=== PATIENT | female | born 1925 | race Hispanic/Latino ===

== ENCOUNTER 2017-11-06 01:29 | Emergency (ER) | payer MEDICARE ==
[2017-11-06 01:29] VITALS: PULSE 112; BMI 21.2
[2017-11-06 01:45] VITALS: BP 122/87; PULSE 103; RESP 18; TEMP 97.5; O2SAT 96
--- NOTE | 2017-11-06 02:00 | ED PDOC ---
Arrival/HPI - General Chief Complaint: ENT Problem Time Seen by Provider: 11/06/17 01:48 Historian: Patient - History of Present Illness Narrative History of Present Illness (Text): 11/06/17 01:57 89 year old female, with past medical history of A-Fib, COPD, PE and DVT, presents to the Emergency department complaining of right ear obstruction by foreign object prior to arrival. Patient believes a q-tip may have obstructed her right ear and wants medical attention. Patient currently denies any pain or discomfort to the ear. Patient denies any fever, chills, nausea, vomiting, diarrhea, chest pain, shortness of breath, abdominal pain or any other complaints. Time/Duration: Prior to Arrival Symptom Onset: Gradual Activities at Onset: Light Context: Home Past Medical History - Provider Review Nursing Documentation Reviewed: Yes - Infectious Disease Hx of Infectious Diseases: None - Tetanus Immunization Tetanus Immunization: Unknown - Reproductive Menopause: Yes - Cardiac Hx Cardiac Disorders: Yes Hx Atrial Fibrillation: Yes Hx Congestive Heart Failure: Yes Hx Hypertension: Yes - Pulmonary Hx Chronic Obstructive Pulmonary Disease (COPD): Yes - Neurological Hx Neurological Disorder: No - HEENT Hx HEENT Disorder: No (WEARS RX GLASSES) - Renal Hx Renal Disorder: No - Endocrine/Metabolic Hx Endocrine Disorders: Yes Hx Hyperthyroidism: Yes - Hematological/Oncological Hx Blood Transfusions: Yes Hx Blood Transfusion Reaction: No - Integumentary Hx Dermatological Disorder: No Other/Comment: CYST REMOVED TO BACK - Musculoskeletal/Rheumatological Hx Musculoskeletal Disorders: Yes Hx Back Pain: Yes Hx Falls: Yes Hx Spinal Stenosis: Yes - Gastrointestinal Hx Gastrointestinal Disorders: Yes Hx Gastroesophageal Reflux: Yes - Genitourinary/Gynecological Hx Genitourinary Disorders: No - Psychiatric Hx Psychophysiologic Disorder: Yes Hx Anxiety: Yes Hx Depression: No Hx Emotional Abuse: No Hx Physical Abuse: No Hx Substance Use: No - Past Surgical History Past Surgical History: No Previous - Surgical History Other/Comment: cyst removed from back - Anesthesia Hx Anesthesia Reactions: No Hx Malignant Hyperthermia: No - Suicidal Assessment Feels Threatened In Home Enviroment: No Family/Social History - Physician Review Nursing Documentation Reviewed: Yes Family/Social History: No Known Family HX Smoking Status: Former Smoker Hx Alcohol Use: No Hx Substance Use: No Hx Substance Use Treatment: No Allergies/Home Meds Allergies/Adverse Reactions: Allergies codeine Allergy (Verified 11/06/17 01:45) ANAPHYLAXIS Home Medications: Home Meds Medication Instructions Recorded Confirmed Diazepam 5 mg PO HS PRN 03/23/14 11/06/17 Arformoterol [Brovana] 15 mcg IH DAILY 12/23/14 11/06/17 Budesonide 0.5 mg IH DAILY 12/23/14 11/06/17 Digoxin [Digitek] 125 mcg PO DAILY 08/30/15 11/06/17 Metoprolol Succinate [Toprol XL] 25 mg PO DAILY 08/30/15 11/06/17 Vitamin D 2,000 iu PO DAILY 08/30/15 11/06/17 Apixaban [Eliquis] 5 mg PO DAILY 11/06/17 11/06/17 Latanoprost 0.005% Opht [Xalatan 1 drop OD DAILY 11/06/17 11/06/17 Opht] Methimazole 5 mg PO BID 11/06/17 11/06/17 Olopatadine 0.1% Opht [Patanol 5 1 drop OP DAILY 11/06/17 11/06/17 Ml] Review of Systems - Physician Review All systems were reviewed & negative as marked: Yes - Review of Systems Constitutional: Normal. absent: Fevers Eyes: Normal ENT: Other (foreign body obstruction ) Respiratory: Normal. absent: SOB Cardiovascular: Normal. absent: Chest Pain Gastrointestinal: Normal. absent: Abdominal Pain, Diarrhea, Nausea, Vomiting Genitourinary Female: Normal Musculoskeletal: Normal Skin: Normal Neurological: Normal Endocrine: Normal Hemo/Lymphatic: Normal Psychiatric: Normal Physical Exam Vital Signs Reviewed: Yes Vital Signs Temp Pulse Resp BP Pulse Ox 11/06/17 01:37 97.5 F L 103 H 18 122/87 96 Temperature: Afebrile Blood Pressure: Normal Pulse: Tachycardic Respiratory Rate: Normal Appearance: Positive for: Well-Appearing, Non-Toxic, Comfortable Pain Distress: None Mental Status: Positive for: Alert and Oriented X 3 - Systems Exam Head: Present: Atraumatic, Normocephalic Pupils: Present: PERRL Extroacular Muscles: Present: EOMI Conjunctiva: Present: Normal Ears: Present: Normal, Other (No foreign body found. Appears benign. ) Mouth: Present: Moist Mucous Membranes Neck: Present: Normal Range of Motion Respiratory/Chest: Present: Clear to Auscultation, Good Air Exchange. No: Respiratory Distress, Accessory Muscle Use Cardiovascular: Present: Regular Rate and Rhythm, Normal S1, S2. No: Murmurs Abdomen: Present: Normal Bowel Sounds. No: Tenderness, Distention, Peritoneal Signs Back: Present: Normal Inspection Neurological: Present: GCS=15, CN II-XII Intact, Speech Normal Skin: Present: Warm, Dry, Normal Color. No: Rashes Psychiatric: Present: Alert, Oriented x 3, Normal Insight, Normal Concentration Medical Decision Making ED Course and Treatment: 11/06/17 02:03 Impression: 89 year old female presents to the Emergency department for right ear foreign body obstruction. Plan: -- Reassess and disposition Progress Notes: 11/06/17 02:03 Upon physical exam, no foreign body object was located. Patient appears to be well-appearing and comfortable denying any complaints. Will discharge patient. - Scribe Statement The provider has reviewed the documentation as recorded by the Scribe Shellie Villarreal. All medical record entries made by the Scribe were at my direction and personally dictated by me. I have reviewed the chart and agree that the record accurately reflects my personal performance of the history, physical exam, medical decision making, and the department course for this patient. I have also personally directed, reviewed, and agree with the discharge instructions and disposition. Disposition/Present on Arrival - Present on Arrival Any Indicators Present on Arrival: No History of DVT/PE: Yes History of Uncontrolled Diabetes: No Urinary Catheter: No History of Decub. Ulcer: No History Surgical Site Infection Following: None - Disposition Have Diagnosis and Disposition been Completed?: Yes Diagnosis: Foreign body in ear Disposition: HOME/ ROUTINE Disposition Time: 02:15 Condition: GOOD Discharge Instructions (ExitCare): Ear Foreign Body (ED) Forms: [employer] ([place])
== END 2017-11-06 02:15 | disposition home or self-care (01) ==
LOC: ED 01:29
DX: T16.1XXA Foreign body in right ear, initial encounter (principal); X58.XXXA Exposure to other specified factors, initial encounter; Y92.9 Unspecified place or not applicable